=== PATIENT | female | born 1940 | race Caucasian/White ===

== ENCOUNTER 2020-04-25 10:40 | Outpatient (CLI) | payer MEDICARE, MEDICAID, SELFPAY ==
--- NOTE | ~2020-04-25 | MM_ITS ---
EXAMINATION: MM screening [place] [facility] w ernesto HISTORY: Screening mammogram TECHNIQUE: Craniocaudal and mediolateral oblique 3-D tomosynthesis images were obtained and synthetic 2-D images were generated. CAD analysis was submitted and interpreted. COMPARISON: 04/11/2019, 04/08/2018 bilateral digital screening mammogram examinations 04/06/2017 bilateral diagnostic digital mammogram and left complete breast ultrasound examination. BREAST PARENCHYMAL COMPOSITION: There are scattered areas of fibroglandular density. FINDINGS: There are scattered bilateral benign calcifications. There is an oil cyst in the upper mid left breast, with chronic architectural distortion, overlying retraction, consistent with prior left partial mastectomy and radiation treatment for breast cancer in 2014. There is no evidence of suspici ous mass, calcification, or architectural distortion to suggest malignancy in either breast. There lópez s been no suspicious interval change. IMPRESSION: 1. No mammographic evidence of malignancy. 2. Recommend routine screening mammography in one year. BI-RADS Category 2: Benign finding(s). Reviewed, dictated and finalized at location A.
== END 2020-04-25 10:41 | disposition home or self-care (01) ==
PROVIDERS: PCP Internal Medicine; Visit Provider Internal Medicine
DX: Z12.31 Encounter for screening mammogram for malignant neoplasm of breast (principal)
CPT/HCPCS: 77063; 77067

== ENCOUNTER 2021-03-29 08:04 | Outpatient (CLI) | payer MEDICARE, MEDICAID, SELFPAY | END 2021-03-29 08:05 | disposition home or self-care (01) | LOC: ANHAUDIO 08:07 | PROVIDERS: PCP Internal Medicine; Visit Provider Nurse Practitioner Family | DX: R42 Dizziness and giddiness (principal); H91.90 Unspecified hearing loss, unspecified ear | CPT/HCPCS: 92537; 92540; 92546; 92557; 92567 ==

== ENCOUNTER 2021-04-29 14:20 | Outpatient (CLI) | payer MEDICARE, MEDICAID, SELFPAY ==
--- NOTE | ~2021-04-29 | MM_ITS ---
EXAMINATION: MM screening [place] [facility] w ernesto HISTORY: Screening mammogram TECHNIQUE: Craniocaudal and mediolateral oblique 3-D tomosynthesis images were obtained and synthetic 2-D images were generated. CAD analysis was submitted and interpreted. COMPARISON: No prior mammogram is available for comparison at this institution. BREAST PARENCHYMAL COMPOSITION: There are scattered areas of fibroglandular density. FINDINGS: Status post left partial mastectomy for breast cancer, 2014. There is stable scarring and s ome retraction and fat necrosis and benign calcification in the upper mid left breast. Bilateral benign breast calcifications. There is no evidence of suspicious mass, calcification, or interval architectural distortion to sugge st malignancy in either breast. There has been no suspicious interval change. IMPRESSION: 1. Status post partial left mastectomy for breast cancer. No mammographic evidence of malignancy. 2. Recommend routine screening mammography in one year. BI-RADS Category 2: Benign finding(s). Reviewed, dictated and finalized at location A. IMPRESSION: 1. Status post partial left mastectomy for breast cancer. No mammographic evide nce of malignancy. 2. Recommend routine screening mammography in one year. BI-RADS Category 2: Benign finding(s).
== END 2021-04-29 14:21 | disposition home or self-care (01) ==
LOC: ANHIMG 14:27
PROVIDERS: PCP Internal Medicine; Visit Provider Internal Medicine
DX: Z12.31 Encounter for screening mammogram for malignant neoplasm of breast (principal)
CPT/HCPCS: 77063; 77067

== ENCOUNTER 2022-03-13 11:44 | Outpatient (CLI) | payer OTHER, SELFPAY ==
--- NOTE | ~2022-03-13 | US_ITS ---
US breast LT complete DATE: 03/13/2022 13:21 Please refer to the combined left diagnostic mammogram and left breast ultrasound report. IMPRESSION: BI-RADS Category 4: Suspicious abnormality. Skin punch biopsy is recommended at area of c omplaint at 8:00. Reviewed, dictated and finalized at Location A. Reviewed, dictated and finalized at location A. IMPRESSION: BI-RADS Category 4: Suspicious abnormality. Skin punch biopsy is re commended at area of complaint at 8:00.
--- NOTE | ~2022-03-13 | MM_ITS ---
EXAMINATION: MM diagnostic [place] [facility] w ernesto HISTORY: Lump under left breast for 3 weeks; status post left partial mastectomy for breast cancer, 2 012 TECHNIQUE: ML, MLO and CC 3-D tomosynthesis images of the left breast were performed and synthetic 2- D images were generated. CAD analysis was submitted and interpreted. High resolution complete left br east ultrasound including all 4 quadrants and subareolar area was performed. COMPARISON: 04/29/2021, 04/25/2020, 04/11/2019, 04/08/2018 bilateral screening mammogram examinations 04/06/2017 bilateral diagnostic mammogram and complete left breast ultrasound BREAST PARENCHYMAL COMPOSITION: There are scattered areas of fibroglandular density. FINDINGS: MAMMOGRAPHIC FINDINGS: There is chronic scarring and mild retraction and evidence of an approximately 7.5 mm oil cyst in the upper mid left breast, with some benign calcifications as well. The renal cyst is diminished from 8. 8 mm dimension on 04/11/2019. No interval suspicious mass or new architectural distortion or any malignant calcification is noted. There is skin thickening along the inferior and medial aspect of the left breast, mildly increased si nce 04/29/2021. Consider punch biopsy. ULTRASOUND: There is a mixed sonolucent and mildly echogenic mass at 12:00 4 cm from the nipple, measuring 6 x 5 x 8.4 mm, with some posterior shadowing. This previously measured 9.3 x 7.2 x 12 mm on 04/06/2017, with some shadowing noted at that time as we ll. This is likely benign postoperative scarring and oil cyst. There is up to 4.5 mm skin thickening and multiple areas of hypoechogenicity within the skin in the 8 :00 area near the area of clinical complaint. Malignant infiltration of the skin is suspected. Consid er skin punch biopsy. No suspicious mass or shadowing is detected otherwise.. IMPRESSION: 1. Suspicious abnormality: Skin thickening with patchy hypoechoic areas in the 8:00 area at the area of clinical complaint of palpable finding. This might represent malignant infiltration of the skin. 2. Punch biopsy is recommended BI-RADS category 4, suspicious findings; punch biopsy of the skin is recommended at the area of clini ashanti complaint at 8:00 Dr. Gleason telephoned the report and skin punch biopsy recommendation on 03/13/20[address] Ham. Reviewed, dictated and finalized at location A. IMPRESSION: 1. Suspicious abnormality: Skin thickening with patchy hypoechoic areas in the 8:00 area at the area of clinical complaint of palpable finding. This might rep resent malignant infiltration of the skin. 2. Punch biopsy is recommended BI-RADS category 4, suspicious findings; punch biopsy of the skin is recommende d at the area of clinical complaint at 8:00 Dr. Gleason telephoned the report and skin punch biopsy recommendation on [address] Ham.
== END 2022-03-13 11:45 | disposition home or self-care (01) ==
PROVIDERS: PCP Internal Medicine; Visit Provider Internal Medicine
DX: N63.20 Unspecified lump in the left breast, unspecified quadrant (principal); R92.8 Other abnormal and inconclusive findings on diagnostic imaging of breast
CPT/HCPCS: 76641; 77061; 77065; G0279